=== PATIENT | male | born 1985 | race American Indian/Alaskan Native ===

== ENCOUNTER 2019-01-01 09:26 | Emergency (ER) | payer SELFPAY ==
[2019-01-01 09:40] VITALS: BP 131/86
[2019-01-01 10:23] LABS: Albumin 5.1 g/dL (3.9-5); Calcium 10.5 mg/dL (8.4-10.2)
[2019-01-01] MEDS ORDERED: NACL 0.9% 1000 ML 1,000 ML IV ONE ×2 (10:23→12:26)
--- NOTE | 2019-01-01 10:29 | Emergency Department Report ---
ED General Adult HPI - General Chief complaint: Abdominal Pain Stated complaint: VOMITING/STOMACH PAIN/HEADACHE/NAUSEA Time Seen by Provider: 01/01/19 10:22 Source: patient Mode of arrival: Ambulatory Limitations: No Limitations - History of Present Illness Initial comments: 33-year-old -[place] male [facility] department complaining 2 day history of fatigue, nausea, muscle cramps, aches, headaches, which she states started after a day of profuse sweating on the job. Reports no hematuria or dysuria. No hematemesis, hematochezia. No syncope or seizure activity. No chest pain or palpitations. No shortness of breath swelling, no rashes. He reports no foreign travel, no medications. States that his last time last vomiting was yesterday. He is tolerated well. No fever present. -: Gradual Radiation: non-radiation Quality: dull Consistency: constant Improves with: none Worsens with: none Associated Symptoms: loss of appetite, malaise. denies: cough, fever/chills, rash, shortness of breath, syncope - Related Data Allergies Allergy/AdvReac Type Severity Reaction Status Date / Time No Known Allergies Allergy Unverified 01/01/19 09:31 ED Review of Systems ROS: Stated complaint: VOMITING/STOMACH PAIN/HEADACHE/NAUSEA Other details as noted in HPI Comment: All other systems reviewed and negative ED Past Medical Hx - Social History Smoking Status: Current Every Day Smoker Substance Use Type: None ED Physical Exam - General Limitations: No Limitations General appearance: alert, in no apparent distress, other (no acute distress, talking on the cell phone upon entry to the wound was well. Speaks well. Limitations. Speaks in full sentences, uses hands and extremities to the full capability) - Head Head exam: Present: atraumatic, normocephalic, normal inspection - Eye Eye exam: Present: normal appearance, PERRL, EOMI Pupils: Present: normal accommodation - ENT ENT exam: Present: normal exam, mucous membranes moist, TM's normal bilaterally - Neck Neck exam: Present: normal inspection, full ROM - Respiratory Respiratory exam: Present: normal lung sounds bilaterally. Absent: respiratory distress, wheezes, rales, chest wall tenderness, accessory muscle use, decreased breath sounds - Cardiovascular Cardiovascular Exam: Present: regular rate, normal rhythm. Absent: systolic murmur, diastolic murmur, rubs, gallop - GI/Abdominal GI/Abdominal exam: Present: soft, normal bowel sounds. Absent: tenderness, guarding, hypoactive bowel sounds, mass, bruit - Rectal Rectal exam: Present: deferred - Extremities Exam Extremities exam: Present: normal inspection, full ROM, normal capillary refill - Back Exam Back exam: Present: normal inspection. Absent: CVA tenderness (R), CVA tenderness (L) - Neurological Exam Neurological exam: Present: alert, oriented X3, CN II-XII intact, normal gait - Psychiatric Psychiatric exam: Present: normal affect, normal mood. Absent: flat affect, manic, homicidal ideation - Skin Skin exam: Present: warm, dry, intact, normal color. Absent: rash ED Course Vital Signs 01/01/19 09:39 Temperature 98.4 F Pulse Rate 84 Respiratory 18 Rate Blood Pressure 131/86 O2 Sat by Pulse 98 Oximetry ED Medical Decision Making - Lab Data Result diagrams: 01/01/19 09:51 01/01/19 09:51 - Medical Decision Making 33-year-old -[place] male with elevated CPK due to dehydration increased work sun. Responded well to the IV therapy. Discussed with him the need to refrain from work over the next 4 days. Continue with the hydration process. No no evidence of any renal dysfunction. He is tolerating oral states that he feels much better since the IV fluids. Urine does have some some protein did not appear to be T colored Recurrence. CK is less than 2000 and should continue to trend down with the appropriate hydration and rest Critical care attestation.: If time is entered above; I have spent that time in minutes in the direct care of this critically ill patient, excluding procedure time. ED Disposition Clinical Impression: Elevated CK, Dehydration Disposition: DC-01 TO HOME OR SELFCARE Is pt being admited?: No Does the pt Need Aspirin: No Condition: Stable Instructions: Dehydration (ED), Rhabdomyolysis (ED) Forms: Work/School Release Form(ED)
[2019-01-01 10:31] LABS: Basophils % (Auto) 0.7 % (0.0-1.8); Eosinophils # (Auto) 0.1 K/mm3 (0.0-0.4); Eosinophils % (Auto) 1.1 % (0.0-4.3); Hematocrit 49.1 % (35.5-45.6); Hemoglobin 16.2 gm/dl (11.8-15.2); Lymphocytes # (Auto) 1.5 K/mm3 (1.2-5.4); Lymphocytes % (Auto) 25.9 % (13.4-35.0); Mean Corpuscular HGB Conc 33 % (32-34); Mean Corpuscular Volume 88 fl (84-94); Monocytes # (Auto) 0.8 K/mm3 (0.0-0.8); Monocytes % (Auto) 14.5 % (0.0-7.3); Platelet Count 281 K/mm3 (140-440); Red Cell Distribution Width 13.7 % (13.2-15.2)
[2019-01-01 11:24] LABS: Bacteria,Urine 1+ /HPF (Negative); Bilirubin,Urine NEG (Negative); Blood,Urine NEG (Negative); Color,Urine Amber (Yellow); Hyaline Casts,Urine 12 /LPF; Mucus,Urine 2+ /HPF
== END 2019-01-01 13:37 | disposition home or self-care (01) ==
LOC: ED 09:26
DX: E86.0 Dehydration (principal); R74.8 Abnormal levels of other serum enzymes; F17.200 Nicotine dependence, unspecified, uncomplicated
CPT/HCPCS: 36415; 80053; 81001; 82550; 85025; 96360; 96361; 99283; J7030